=== PATIENT | male | born 1960 | race Caucasian/White ===

== ENCOUNTER 2017-05-01 20:38 | Observation (INO) | payer BC ==
[~2017-05-01] VITALS: Ht 170.2 cm; Wt 88.6 kg
[2017-05-01 20:45] VITALS: BP 124/72; PULSE 80; RESP 18; TEMP 98.6; O2SAT 89
[2017-05-01 20:46] VITALS: O2SAT 95
--- NOTE | 2017-05-01 21:18 | PD ---
HPI Chief Complaint: Syncope/Near-Syncope Time Seen by Provider: 21:16 Travel History International Travel<30 days: No Contact w/Intl Traveler<30days: No Traveled to known affect area: No History of Present Illness HPI The patient is a 57 year old male who presents to the [facility] emergency department with a history of syncopal event after being in the hot tub for over 30 minutes prior to arrival. He denies any known injuries related to the syncope. He reports that he was able to get into the elevator and then he woke up with the doors closing on his feet. He was then able to walk 3 doors down to his condo door. He reportedly knocked on the door and his came out. She found him laying on the floor of the [place]. He had his eyes open however he was not responding to her. He reportedly then began to shake all over which lasted a couple of minutes. He did not bite his tongue or lose control of his bowel or bladder. He denies any prior history of seizure activity. His only other history is significant for having a TIA and 11/2016 with symptoms of weakness and falling related to left lower extremity weakness. Since then he was placed on Crestor, Lisinopril, and Plavix. This occurred in winter. He has not established with a new primary care doctor since moving to the area. He reports that he has continued to take his medications on a regular basis. The only other medication that he takes [id number] is ibuprofen 800 mg once a week when he plays golf. Patient reports that he does drink alcohol on a daily basis. He usually drinks 2 vodka drinks daily. He also occasionally reportedly smokes marijuana. After becoming more responsive after the seizure activity he was confused. He had nausea and vomiting 4. He was also noted to be diaphoretic. He denies having any recent fevers or chills, cough, congestion, neck pain, chest pain, shortness of breath, abdominal pain, diarrhea, urinary symptoms, one-sided weakness, slurred speech, facial droop, difficulty with word finding ability, or vision changes. [facility] Past Medical History Narrative Medical The patient's past medical history is significant for hyperlipidemia, hypertension, history of a TIA in 2017 High Cholesterol: Yes Hypertension: Yes Tetanus Vaccination: < 5 Years Influenza Vaccination: No Past Surgical History Narrative Surgical The patient's past surgical history is significant for skin cancer removal, left shoulder surgery. Other Surgery: Yes (RIGHT SHOULDER ) Social History Alcohol Use: Yes (2 vodka drinks per day) Tobacco Use: No Substance Use: Yes (Marijuana occasional) Allergies-Medications (Allergen,Severity, Reaction): Coded Allergies: No Known Allergies (Unverified , 05/01/17) Reported Meds & Prescriptions Reported Meds & Active Scripts Active Reported Lipitor (Atorvastatin Calcium) 10 Mg Tab 10 Mg PO HS Plavix (Clopidogrel Bisulfate) 75 Mg Tab 75 Mg PO DAILY Crestor (Rosuvastatin Calcium) 5 Mg Tab 5 Mg PO DAILY Review of Systems Except as stated in HPI: all other systems reviewed are Neg General / Constitutional: No: Fever Eyes: No: Visual changes HENT: No: Headaches Cardiovascular: Positive: Diaphoresis, Syncope, No: Chest Pain or Discomfort, Dyspnea on exertion Respiratory: No: Shortness of Breath Gastrointestinal: Positive: Nausea, Vomiting, No: Diarrhea, Abdominal Pain Genitourinary: No: Dysuria Musculoskeletal: No: Pain Skin: No Rash Neurologic: Positive: Syncope, Change in Mentation, Seizures, No: Weakness, Focal Abnormalities, Slurred Speech, Sensory Disturbance Psychiatric: No: Depression Endocrine: No: Polydipsia Hematologic/Lymphatic: No: Easy Bruising Physical Exam Narrative General: The patient is a well-developed well-nourished male in no acute distress. Head and Neck exam: Head is normocephalic atraumatic. Eyes: EOMI, pupils are equal round and reactive to light. Nose: Midline septum with pink mucous membranes Mouth: Dentition unremarkable. Moist mucus membranes. Posterior oropharynx is not erythematous. No tonsillar hypertrophy. Uvula midline. Airway patent. Neck: No palpable lymphadenopathy. No nuchal rigidity. No thyromegaly. Cardiovascular: Regular rate and rhythm without murmurs, gallops, or rubs. No pulse deficit to the extremities on simultaneous auscultation and palpation of his radial artery. Lungs: Clear to auscultation bilaterally. No wheezes, rhonchi, or rales. Abdomen: Soft, without tenderness to palpation in all 4 quadrants of the abdomen. No guarding, rebound, or rigidity. Normal bowel sounds are audible. No tenderness on palpation of McBurney's point. Negative Avilez sign. Extremities: No clubbing, cyanosis, or edema. 2+ pulses in all 4 extremities. No calf tenderness on palpation. Back: No costovertebral angle tenderness to palpation. Neurologic Exam: Cranial nerves 2-12 were intact on exam. Strength is 5/5 in all 4 extremities. No sensory deficits noted. Skin Exam: No rash noted. Intact skin that is warm and dry. Data Data Last Documented VS Vital Signs Date Time Temp Pulse Resp B/P (MAP) Pulse Ox O2 Delivery O2 Flow Rate FiO2 05/01/17:22 16 96 Room Air 05/01/17 21:22 2.00 05/01/17 20:45 98.6 80 Orders Orders Electrocardiogram (05/01/17:) B-Type Natriuretic Peptide (05/01/17:17) Ckmb (Isoenzyme) Profile (05/01/17:17) Complete Blood Count With Diff (05/01/17 21:17) Comprehensive Metabolic Panel (05/01/17 21:) D-Dimer (05/01/17:) Magnesium (Mg) (05/01/17:17) Prothrombin Time / Inr (Pt) (05/01/17 21:17) Act Partial Throm Time (Ptt) (05/01/17 21:17) Troponin I (05/01/17 21:17) Lipase (05/01/17 21:17) Ecg Monitoring (05/01/17:17) Bilateral Bp Monitoring (05/01/17 21:17) Iv Access Insert/Monitor (05/01/17 21:17) Oximetry (05/01/17 21:17) Oxygen Administration (05/01/17:17) Sodium Chloride 0.9% Flush (Ns Flush) (05/01/17 21:30) Sodium Chlorid 0.9% 500 Ml Inj (Ns 500 M (05/01/17 21:30) Chest, Pa & Lat (05/01/17 21:17) Ct Brain W/O Iv Contrast(Rout) (05/01/17 21:48) CKMB (05/01/17 21:30) CKMB% (05/01/17 21:30) Complete Blood Count With Diff (05/01/17 22:55) Admit Order (Ed Use Only) (05/02/17 00:31) Labs Laboratory Tests Test 05/01/17 21:30 05/01/17 22:55 Blood Urea Nitrogen 20 MG/DL Creatinine 1.42 MG/DL Random Glucose 112 MG/DL Total Protein 7.6 GM/DL Albumin 3.8 GM/DL Calcium Level 8.8 MG/DL Magnesium Level 2.2 MG/DL Alkaline Phosphatase 68 U/L Aspartate Amino Transf (AST/SGOT) 27 U/L Alanine Aminotransferase (ALT/SGPT) 39 U/L Total Bilirubin 0.6 MG/DL Sodium Level 137 MEQ/L Potassium Level 4.5 MEQ/L Chloride Level 103 MEQ/L Carbon Dioxide Level 26.5 MEQ/L Anion Gap 8 MEQ/L Estimat Glomerular Filtration Rate 51 ML/MIN Total Creatine Kinase 216 U/L Creatine Kinase MB 2.6 NG/ML Troponin I LESS THAN 0.02 NG/ML B-Type Natriuretic Peptide LESS THAN 2 PG/ML Lipase 135 U/L White Blood Count 12.7 TH/MM3 Red Blood Count 4.09 MIL/MM3 Hemoglobin 13.6 GM/DL Hematocrit 37.8 % Mean Corpuscular Volume 92.4 FL Mean Corpuscular Hemoglobin 33.2 PG Mean Corpuscular Hemoglobin Concent 35.9 % Red Cell Distribution Width 13.2 % Platelet Count 199 TH/MM3 Mean Platelet Volume 8.3 FL Neutrophils (%) (Auto) 89.6 % Lymphocytes (%) (Auto) 4.8 % Monocytes (%) (Auto) 3.5 % Eosinophils (%) (Auto) 0.8 % Basophils (%) (Auto) 1.3 % Neutrophils # (Auto) 11.4 TH/MM3 Lymphocytes # (Auto) 0.6 TH/MM3 Monocytes # (Auto) 0.4 TH/MM3 Eosinophils # (Auto) 0.1 TH/MM3 Basophils # (Auto) 0.2 TH/MM3 CBC Comment DIFF FINAL Differential Comment Hematology Comments Prothrombin Time 10.3 SEC Prothromb Time International Ratio 1.0 RATIO Activated Partial Thromboplast Time 19.6 SEC D-Dimer Quantitative (PE/DVT) 0.30 MG/L [facility] Medical Decision Making Medical Screen Exam Complete: Yes Emergency Medical Condition: Yes Medical Record Reviewed: Yes Interpretation(s) Last Impressions Head CT 05/01/17 [id number] Signed Impressions: Service Date/Time: Monday, May 01, 2017 22:31 - CONCLUSION: 1. Negative noncontrast CT brain. Bry Bonilla MD Chest X-Ray 05/01/[id number] Signed Impressions: Service Date/Time: Monday, May 01, 2017 22:17 - CONCLUSION: The lungs are clear. Bry Bonilla MD Differential Diagnosis Vasovagal syncope, versus orthostatic syncope, versus cardiac arrhythmia, versus seizure disorder, versus intracranial abnormality Narrative Course During the course of the patient's emergency department visit, the patient's history, examination, and differential diagnosis were reviewed with the patient. The patient was placed on a case manager specialist with oximetry and frequent blood pressure monitoring. The patient had IV access obtained and blood work sent for analysis. The patient had an EKG done on arrival. The patient's EKG shows a sinus rhythm heart rate of 80, QRS duration is 101 ms, QTC [address] segment elevation is noted. The patient was initially provided normal saline 500 mL IV 1, Zofran 4 mg IV administered by ambulance services. The patient was given an additional normal saline 500 mL bolus on arrival. The patient's laboratory studies were reviewed and remarkable for a white count of 12.7, hemoglobin 13.6, platelets 199 with neutrophils 89.6, lymphocytes 4.8. CMP is remarkable for BUN of 20, creatinine 1.42, glucose 112, cardiac enzymes within normal limits, BNP less than 2, lipase 135, PT PTT unremarkable, d-dimer 0.30 decrease in likelihood of pulmonary embolism in this patient with no other significant risk factors. Radiology studies were reviewed and remarkable for chest x-ray that shows no acute cardiopulmonary disease. CT scan of the brain shows no acute abnormality. The patient's results were discussed with the patient, including the plan of care. I explained that further testing and/ or monitoring is indicated based on the patient's history, examination, and/ or laboratory findings. Therefore, I recommended admission for additional evaluation. The patient expressed understanding and was agreeable with this plan. The patient was admitted to the hospital in stable condition and [facility] Physician Communication Physician Communication The patient's case including history, pertinent physical examination findings, and laboratory studies were discussed with Dr. Curiel. It was agreed that the [facility] would [facility]. Diagnosis Primary Impression: Syncope Qualified Codes: R55 - Syncope and collapse Additional Impression: Witnessed seizure-like activity Admitting Information Admitting Physician Requests: Observation Juliana Hernández MD May 01, 2017 21:18
[2017-05-01 21:22] VITALS: BP_SYST 131; BP_SYST 135; BP_DIAS 75; BP_DIAS 81; RESP 16; O2SAT 96
[2017-05-01] MEDS ORDERED: LIPI10TA PO (21:27)
[2017-05-01] MEDS ORDERED: ROSU5 PO (21:27)
[2017-05-01] MEDS ORDERED: PLAV75TA29 PO (21:27)
[2017-05-01] MEDS ORDERED: SODIUM CHLORIDE 0.9% FLUSH 10 ML FLUSH IVF PRN (21:30)
[2017-05-01] MEDS ORDERED: SODIUM CHLORID 0.9% 500 ML INJ 500 ML IV ONE (21:30)
[2017-05-01 22:30] VITALS: BP 131/81; PULSE 64; RESP 14; O2SAT 98
--- NOTE | 2017-05-01 22:39 | RADRPT ---
EXAM DATE/TIME: 05/01/2017 22:17 [facility] COMPARISON: No previous studies available for comparison. INDICATIONS : Short of breath, syncope. MEDICAL HISTORY : None. SURGICAL HISTORY : None. ENCOUNTER: Initial ACUITY: 1 day PAIN SCORE: 2/10 LOCATION: Bilateral chest FINDINGS: PA and lateral views of the chest demonstrate the lungs to be symmetrically aerated without evidence of mass, infiltrate or effusion. The cardiomediastinal contours are unremarkable. Osseous structure s are intact. CONCLUSION: The lungs are clear. Bry Bonilla MD on May 01, 2017 at 22:37 Board Certified Radiologist. This report was verified electronically.
--- NOTE | 2017-05-01 22:40 | RADRPT ---
EXAM DATE/TIME: 05/01/2017 22:31 [facility] COMPARISON: No previous studies available for comparison. INDICATIONS : Syncope. RADIATION DOSE: 36.78 CTDIvol (mGy) MEDICAL HISTORY : Hypertension. SURGICAL HISTORY : None. ENCOUNTER: Initial ACUITY: 1 day PAIN SCALE: 0/10 LOCATION: cranial TECHNIQUE: Multiple contiguous axial images were obtained of the head. Using automated exposure control and adj ustment of the mA and/or kV according to patient size, radiation dose was kept as low as reasonably a chievable to obtain optimal diagnostic quality images. DICOM format image data is available electro nically for review and comparison. FINDINGS: CEREBRUM: The ventricles are normal for age. No evidence of midline shift, mass lesion, hemorrhage or acute in farction. No extra-axial fluid collections are seen. POSTERIOR FOSSA: The cerebellum and brainstem are intact. The 4th ventricle is midline. The cerebellopontine angle i s unremarkable. EXTRACRANIAL: The visualized portion of the orbits is intact. SKULL: The calvaria is intact. No evidence of skull fracture. CONCLUSION: 1. Negative noncontrast CT brain. Bry Bonilla MD on May 01, 2017 at 22:37 Board Certified Radiologist. This report was verified electronically.
[2017-05-01 22:50] LABS: ALBUMIN 3.8 GM/DL (3.4-5.0); ALKALINE PHOSPHATASE 68 U/L (45-117); ALT (GPT) 39 U/L (12-78); AST (GOT) 27 U/L (15-37); BICARBONATE 26.5 MEQ/L (21.0-32.0); BLOOD UREA NITROGEN 20 MG/DL (7-18); CALCIUM 8.8 MG/DL (8.5-10.1); CHLORIDE 103 MEQ/L (98-107); CREATININE 1.42 MG/DL (0.60-1.30); GLOMERULAR FILTRATION RATE 51 ML/MIN (>89); GLUCOSE,RANDOM 112 MG/DL (74-106); MAGNESIUM 2.2 MG/DL (1.5-2.5); SODIUM (NA) 137 MEQ/L (136-145); TOTAL BILIRUBIN ADULT 0.6 MG/DL (0.2-1.0); TOTAL PROTEIN 7.6 GM/DL (6.4-8.2); TROPONIN I LESS THAN 0.02 NG/ML (0.02-0.05)
[2017-05-01 23:25] LABS: AUTOMATED NEUTROPHIL # 11.4 TH/MM3 (1.8-7.7); BASOPHIL # 0.2 TH/MM3 (0-0.2); BASOPHIL % 1.3 % (0.0-2.0); EOSINOPHIL # 0.1 TH/MM3 (0-0.4); EOSINOPHIL % 0.8 % (0.0-4.0); HEMATOCRIT 37.8 % (39.0-51.0); HEMOGLOBIN 13.6 GM/DL (13.0-17.0); LYMPH % 4.8 % (9.0-44.0); LYMPHOCYTE # 0.6 TH/MM3 (1.0-4.8); MEAN CELL VOLUME 92.4 FL (80.0-100.0); MEAN CORPUSCULAR HEMOGLOBIN 33.2 PG (27.0-34.0); MEAN CORPUSCULAR HGB CONC 35.9 % (32.0-36.0); MEAN PLATELET VOLUME 8.3 FL (7.0-11.0); MONO % 3.5 % (0.0-8.0); MONOCYTE # 0.4 TH/MM3 (0-0.9); NEUT % 89.6 % (16.0-70.0); PLATELET COUNT 199 TH/MM3 (150-450); RED BLOOD COUNT 4.09 MIL/MM3 (4.50-5.90); RED CELL DISTRIBUTION WIDTH 13.2 % (11.6-17.2); WHITE BLOOD COUNT 12.7 TH/MM3 (4.0-11.0)
[2017-05-01 23:29] LABS: D-DIMER 0.3 MG/L FEU (0.00-0.50); PROTHROMBIN TIME - PATIENT 10.3 SEC (9.8-11.6)
[2017-05-02] VITALS (8 sets, daily range): BP systolic 127–158; BP diastolic 64–88; PULSE 62–83; RESP 14–16; TEMP 98.1–98.6; O2SAT 93–97
[2017-05-02] MEDS ORDERED: SENNOSIDES 8.6 MG TAB PO PRN (01:15)
[2017-05-02] MEDS ORDERED: MAGNESIUM HYDROXIDE SUSP 30 ML CUP PO PRN (01:15)
[2017-05-02] MEDS ORDERED: BISACODYL 10 MG SUPP RECTAL PRN (01:15)
[2017-05-02] MEDS ORDERED: LACTULOSE SYRUP 20 GM/30 ML CUP PO PRN (01:15)
[2017-05-02] MEDS ORDERED: NALOXONE HCL 0.4 MG/ML AMP IV PUSH PRN (01:15)
[2017-05-02] MEDS ORDERED: ONDANSETRON HCL 4 MG/2 ML VIAL IVP PRN (01:15)
[2017-05-02] MEDS ORDERED: SODIUM CHLORIDE 0.9% FLUSH 10 ML FLUSH IV FLUSH PRN (01:15)
--- NOTE | 2017-05-02 02:58 | HHI.HP ---
[facility] Primary Care Physician No Primary Care Physician Admission Diagnosis seizure vs syncope Diagnoses: (1) Syncope Diagnosis: Principal (2) Renal insufficiency Diagnosis: Principal (3) Leukocytosis Diagnosis: Principal Travel History International Travel<30 Days: No Contact w/Intl Traveler <30 Da: No Traveled to Known Affected Are: No History of Present Illness This is a 57-year-old male with a PMH of HTN, Hyperlipidemia and h/o TIA was brought to the ER by EMS after apparent syncopal event. Per patient he was in the hot tub and his condo earlier this evening, had gotten up to go back to his apartment when he had sudden syncopal event in the elevator, states he woke up and found himself lying on the floor of the elevator with the doors closing on his feet. Was able to get up and head back to his apartment, however had second syncopal event while walking in the door. Found by who states the patient had episodes of "shaking". No incontinence. No h/o seizure activity. Denies fever, chills, cough or chest pain. On arrival, BP 135/75, HR 80, O2 sat 96% on 2L NC, Afebrile. EBC 12.7. Creatinine 1.42, no previous labs for comparison. Troponin negative. INR 1.0. D-dimer negative. CT Showed no acute findings. CXR negative. Review of Systems Except as stated in HPI: all other systems reviewed are Neg ROS: 14 point review of systems otherwise negative. Past Family Social History Past Medical History PMH: HTN, Hyperlipidemia and h/o TIA Past Surgical History PAST SURGICAL HISTORY: Right Shoulder Surgery Allergies: Coded Allergies: No Known Allergies (Unverified , 05/01/17) Family History PAST FAMILY HISTORY: Reviewed. No h/o DM or CAD Social History PAST SOCIAL HISTORY: 2 vodka drinks per day. Negative for tobacco. Positive for Marijuana. Physical Exam Vital Signs Vital Signs Date Time Temp Pulse Resp B/P (MAP) Pulse Ox O2 Delivery O2 Flow Rate FiO2 05/01/17 21:22 16 96 Room Air 05/01/17 21:22 96 Nasal Cannula 2.00 05/01/17 21:22 131/81 (98) 135/75 (95) 05/01/17 20:46 95 Nasal Cannula 2.00 05/01/17 20:45 98.6 80 18 124/72 (89) 89 Physical Exam PE: GENERAL: Middle-aged white male in no acute distress, ambulating to bathroom without difficulty. at bedside. HEENT: PERRLA, EOMI. No scleral icterus or conjunctival pallor. No lid lag or facial droop. CARDIOVASCULAR: Regular rate and rhythm. No obvious murmurs to auscultation. No chest tenderness to palpation. RESPIRATORY: No obvious rhonchi or wheezing. Clear to auscultation. Breath sounds equal bilaterally. GASTROINTESTINAL: Abdomen soft, non-tender, nondistended. BS normal. MUSCULOSKELETAL: Extremities without clubbing, cyanosis, or edema. No obvious deformities. NEUROLOGICAL: Awake, alert and oriented x4. No focal neurologic deficits. Moving both upper and lower extremities spontaneously. Laboratory Laboratory Tests Test 05/01/17 21:30 05/01/17 22:55 Blood Urea Nitrogen 20 Creatinine 1.42 Random Glucose 112 Total Protein 7.6 Albumin 3.8 Calcium Level 8.8 Magnesium Level 2.2 Alkaline Phosphatase 68 Aspartate Amino Transf (AST/SGOT) 27 Alanine Aminotransferase (ALT/SGPT) 39 Total Bilirubin 0.6 Sodium Level 137 Potassium Level 4.5 Chloride Level 103 Carbon Dioxide Level 26.5 Anion Gap 8 Estimat Glomerular Filtration Rate 51 Total Creatine Kinase 216 Creatine Kinase MB 2.6 Troponin I LESS THAN 0.02 B-Type Natriuretic Peptide LESS THAN 2 Lipase 135 White Blood Count 12.7 Red Blood Count 4.09 Hemoglobin 13.6 Hematocrit 37.8 Mean Corpuscular Volume 92.4 Mean Corpuscular Hemoglobin 33.2 Mean Corpuscular Hemoglobin Concent 35.9 Red Cell Distribution Width 13.2 Platelet Count 199 Mean Platelet Volume 8.3 Neutrophils (%) (Auto) 89.6 Lymphocytes (%) (Auto) 4.8 Monocytes (%) (Auto) 3.5 Eosinophils (%) (Auto) 0.8 Basophils (%) (Auto) 1.3 Neutrophils # (Auto) 11.4 Lymphocytes # (Auto) 0.6 Monocytes # (Auto) 0.4 Eosinophils # (Auto) 0.1 Basophils # (Auto) 0.2 CBC Comment DIFF FINAL Differential Comment Hematology Comments Prothrombin Time 10.3 Prothromb Time International Ratio 1.0 Activated Partial Thromboplast Time 19.6 D-Dimer Quantitative (PE/DVT) 0.30 Result Diagram: 05/01/17225405/01/172129 Caprini VTE Risk Assessment Caprin VTE Risk Assessment: No/Low Risk (score <= 1) Caprini Risk Assessment Model Point Value = 1 Point Value = 2 Point Value = 3 Point Value = 5 Age 41-60 Minor surgery BMI > 25 kg/m2 Swollen legs Varicose veins or History of unexplained or recurrent spontaneous Oral contraceptives or hormone replacement Sepsis (< 1 month) Serious lung disease, including pneumonia (< 1 month) Abnormal pulmonary function Acute myocardial infarction Congestive heart failure (< 1 month) History of inflammatory bowel disease Medical patient at bed rest Age 61-74 Arthroscopic surgery Major open surgery (> 45 min) Laparoscopic surgery (> 45 min) Malignancy Confined to bed (> 72 hours) Immobilizing plaster cast Central venous access Age >= 75 History of VTE Family history of VTE Factor V Leiden Prothrombin [id number] Lupus anticoagulant Anticardiolipin antibodies Elevated serum homocysteine Heparin-induced thrombocytopenia Other congenital or acquired thrombophilia Stroke (< 1 month) Elective arthroplasty Hip, pelvis, or leg fracture Acute spinal cord injury (< 1 month) Prophylaxis Regimen Total Risk Factor Score Risk Level Prophylaxis Regimen 0-1 Low Early ambulation 2 Moderate Order ONE of the following: *Sequential Compression Device (SCD) *Heparin 5000 units SQ BID 3-4 Higher Order ONE of the following medications: *Heparin 5000 units SQ TID *Enoxaparin/Lovenox 40 mg SQ daily (WT < 150 kg, CrCl > 30 mL/min) *Enoxaparin/Lovenox 30 mg SQ daily (WT < 150 kg, CrCl > 10-29 mL/min) *Enoxaparin/Lovenox 30 mg SQ BID (WT < 150 kg, CrCl > 30 mL/min) AND/OR *Sequential Compression Device (SCD) 5 or more Highest Order ONE of the following medications: *Heparin 5000 units SQ TID (Preferred with Epidurals) *Enoxaparin/Lovenox 40 mg SQ daily (WT < 150 kg, CrCl > 30 mL/min) *Enoxaparin/Lovenox 30 mg SQ daily (WT < 150 kg, CrCl > 10-29 mL/min) *Enoxaparin/Lovenox 30 mg SQ BID (WT < 150 kg, CrCl > 30 mL/min) AND *Sequential Compression Device (SCD) Assessment and Plan Problem List: (1) Syncope ICD Code: R55 - Syncope and collapse (2) Leukocytosis ICD Code: D72.829 - Elevated white blood cell count, unspecified (3) Renal insufficiency ICD Code: N28.9 - Disorder of kidney and ureter, unspecified Assessment and Plan A/P: 1. Syncope: x2, w/ questionable seizure-like activity, ?convulsive syncope vs seizure. CT Head w/ no acute findings, images reviewed by me. Trop negative. Admit for Observation, Telemetry, Check serial cardiac enzymes to eval for possible ischemia, Check Echo to eval for valvular abnormalities. D-dimer negative, PE unlikely. Seizure Precautions. Check EEG to eval for possible seizure like activity. Neuro/Cardio consult as needed. 2. Leukocytosis: WBC 12. Afebrile. Likely secondary to syncope/seizure. CXR w/ no acute findings, images reviewed by me. Repeat labs in am. 3. Renal Insufficiency: Creatinine 1.42, no previous labs for comparison. IVF for hydration, repeat labs in am. 4. DVT Prophylaxis: SCD/teds. 5. Social work for DC planning as needed. 6. Case discussed at length with ER physician, lab/records/imaging reviewed by me. Kamilah Curiel MD May 02, 2017 02:58
[2017-05-02] MEDS: SODIUM CHLOR 0.9% 1000 ML INJ 1,000 ML IV SCH ×3 (05:29→21:01)
[2017-05-02 06:24] LABS: AUTOMATED NEUTROPHIL # 13.4 TH/MM3 (1.8-7.7); BASOPHIL % 0.1 % (0.0-2.0); HEMATOCRIT 38.4 % (39.0-51.0); HEMOGLOBIN 13.3 GM/DL (13.0-17.0); LYMPH % 7.2 % (9.0-44.0); LYMPHOCYTE # 1.1 TH/MM3 (1.0-4.8); MEAN CELL VOLUME 92.7 FL (80.0-100.0); MEAN CORPUSCULAR HGB CONC 34.6 % (32.0-36.0); MEAN PLATELET VOLUME 8.4 FL (7.0-11.0); MONO % 5.6 % (0.0-8.0); MONOCYTE # 0.9 TH/MM3 (0-0.9); NEUT % 87.1 % (16.0-70.0); PLATELET COUNT 222 TH/MM3 (150-450); RED BLOOD COUNT 4.14 MIL/MM3 (4.50-5.90); RED CELL DISTRIBUTION WIDTH 13.4 % (11.6-17.2); WHITE BLOOD COUNT 15.4 TH/MM3 (4.0-11.0)
[2017-05-02 06:31] LABS: ALBUMIN 3.9 GM/DL (3.4-5.0); AST (GOT) 17 U/L (15-37); BICARBONATE 25.4 MEQ/L (21.0-32.0); BLOOD UREA NITROGEN 17 MG/DL (7-18); CHLORIDE 105 MEQ/L (98-107); CREATININE 1.24 MG/DL (0.60-1.30); GLOMERULAR FILTRATION RATE 60 ML/MIN (>89); GLUCOSE,RANDOM 129 MG/DL (74-106); SODIUM (NA) 138 MEQ/L (136-145)
[2017-05-02 06:32] LABS: ALT (GPT) 35 U/L (12-78)
[2017-05-02 06:36] LABS: ALKALINE PHOSPHATASE 72 U/L (45-117); TOTAL PROTEIN 7.5 GM/DL (6.4-8.2); TROPONIN I LESS THAN 0.02 NG/ML (0.02-0.05)
[2017-05-02] MEDS: SODIUM CHLORIDE 0.9% FLUSH 10 ML FLUSH IV FLUSH SCH ×2 (09:00→21:00)
[2017-05-02] MEDS ORDERED: LISI40TA PO (09:23)
[2017-05-02] MEDS: DOCUSATE SODIUM 50 MG/SENNA 8.6 MG TAB PO SCH ×2 (09:24→21:23)
[2017-05-02] MEDS: ATORVASTATIN 10 MG TAB PO SCH (09:24)
[2017-05-02] MEDS: CLOPIDOGREL 75 MG TAB PO SCH (09:24)
--- NOTE | 2017-05-02 10:31 | HHI.PR ---
Subjective Remarks Follow up for syncope vs seizure. The patient is seen with his at bedside. The patient reports yesterday he went for a 2 mile walk and did not drink much water. Later in the day he [facility] for about [facility]- 40 minutes. He also had half of an alcoholic beverage. He then went to go back to his condo, remembers getting the elevator, and then remembers waking up on the floor. He states he made his way to the condo door, knocked on the door , when his answered and noticed him to have his eyes open but with a blank stare, then started shaking and fell to the ground. He also had an episode of vomiting. Denies any incontinence or tongue biting. The reports the episode lasted about a minute. Denies any prior episode of syncope or any history of seizure. He was admitted last year to a hospital in winter, diagnosed with TIA, and started on Plavix at that time. The patient also takes lisinopril and statin. He denies any recent changes to medications. The patient currently feels back to normal. Denies any chest pain, palpitations, shortness of breath, lightheadedness, dizziness, abdominal pain, nausea/vomiting, or diarrhea. He denies any other medical complaints at this time. He wants to go home. Of note, the patient has all records from previous admission for TIA, asked community outreach manager to copy and place records in the chart for review. Objective Vitals Vital Signs Date Time Temp Pulse Resp B/P (MAP) Pulse Ox O2 Delivery O2 Flow Rate FiO2 05/02/17 09:23 80 14 129/78 (95) 96 Nasal Cannula 2.00 05/02/17 07:28 81 14 127/64 (85) 97 Nasal Cannula 2.00 05/02/17 06:19 62 14 143/75 (97) 97 Nasal Cannula 2.00 05/02/17 02:30 71 14 136/84 (101) 97 Nasal Cannula 2.00 05/01/17 22:30 64 14 131/81 (98) 98 Nasal Cannula 2.00 05/01/17 21:22 16 96 Room Air 05/01/17 21:22 96 Nasal Cannula 2.00 05/01/17 21:22 131/81 (98) 135/75 (95) 05/01/17 20:46 95 Nasal Cannula 2.00 05/01/17 20:45 98.6 80 18 124/72 (89) 89 I/O 05/01/17 05/01/17 05/01/17 05/02/17 05/02/17 05/02/17 07:00 15:00 23:00 07:00 15:00 23:00 Intake Total 500 ml Balance 500 ml Intake IV Total 500 ml Result Diagram: 05/02/17 0541 05/02/17 0541 Imaging Last Impressions Head CT 05/01/172147 Signed Impressions: Service Date/Time: Monday, May 01, 2017 22:31 - CONCLUSION: 1. Negative noncontrast CT brain. Bry Bonilla MD Chest X-Ray 05/01/172116 Signed Impressions: Service Date/Time: Monday, May 01, 2017 22:17 - CONCLUSION: The lungs are clear. Bry Bonilla MD Objective Remarks GENERAL: Well-nourished, well-developed pleasant middle aged male patient in [facility]. SKIN: Warm and dry. No rash. HEENT: Normocephalic. Atraumatic.Pupils equal and round. Mucous membranes pink and moist. CARDIOVASCULAR: Regular rate and rhythm. S1, S2 noted. No murmur appreciated. RESPIRATORY: No accessory muscle use. Clear to auscultation. Breath sounds equal bilaterally. GASTROINTESTINAL: Abdomen soft, non-tender, nondistended. Normoactive bowel sounds x4. MUSCULOSKELETAL: No obvious deformities. Extremities without clubbing, cyanosis , or edema. NEUROLOGICAL: Awake and alert. No obvious cranial nerve deficits. Motor grossly within normal limits. Normal speech. PSYCHIATRIC: Appropriate mood and affect; insight and judgment normal. Medications and IVs Current Medications Medications (Trade) Dose Ordered Sig/Cori Route Start Time Stop Time Status Last Admin (NS Flush) 2 ml UNSCH PRN IVF 05/01/17 21:30 Sodium Chloride 1,000 ml @ 100 mls/hr Q10H IV 05/02/17 01:01 05/02/17 05:29 (NS Flush) 2 ml UNSCH PRN IV FLUSH 05/02/17 01:15 (NS Flush) 2 ml BID IV FLUSH 05/02/17 09:00 (Zofran Inj) 4 mg Q6H PRN IVP 05/02/17 01:15 (Narcan Inj) 0.4 mg UNSCH PRN IV PUSH 05/02/17 01:15 (Milka-Colace) 1 tab BID PO 05/02/17 09:00 05/02/17 09:24 (Milk Of Magnesia Liq) 30 ml Q12H PRN PO 05/02/17 01:15 (Senokot) 17.2 mg Q12H PRN PO 05/02/17 01:15 (Dulcolax Supp) 10 mg DAILY PRN RECTAL 05/02/17 01:15 (Lactulose Liq) 30 ml DAILY PRN PO 05/02/17 01:15 (Lipitor) 10 mg HS PO 05/02/17 21:00 (Plavix) 75 mg DAILY PO 05/02/17 09:00 05/02/17 09:24 (Lipitor) 10 mg DAILY PO 05/02/17 09:00 05/02/17 09:24 A/P Problem List: (1) Syncope ICD Code: R55 - Syncope and collapse (2) Leukocytosis ICD Code: D72.829 - Elevated white blood cell count, unspecified (3) Renal insufficiency ICD Code: N28.9 - Disorder of kidney and ureter, unspecified Assessment and Plan 57-year-old male with a PMH of HTN, Hyperlipidemia and h/o TIA was brought to the ER by EMS after syncopal event x2. Syncope: x2, w/ questionable seizure-like activity, ?convulsive syncope vs seizure. -CT Head w/ no acute findings, images reviewed by me. -D-dimer negative, PE unlikely. -Troponins negative x2, checking 3rd set, and EKG with no acute ischemic changes -Monitor on telemetry -Neuro checks, Seizure Precautions. -Check Echo to eval for valvular abnormalities. -Check EEG to eval for possible seizure like activity. -Consult neurology Leukocytosis: WBC 12. Afebrile. Likely secondary to syncope/seizure. -CXR w/ no acute findings, images reviewed by me. -Repeat labs today show increased WBC to 15K -Check UA -Repeat labs in am Renal Insufficiency: Creatinine 1.42, no previous labs for comparison. No reported history of CKD. -Give IVF for hydration -Labs show improvement, Cr 1.24 DVT Prophylaxis: SCD/teds. Discharge Planning Hopefully discharge later today or tomorrow. Echo and EEG pending. Await neurology evaluation. Patient wants to go home. Problem Qualifiers (1) Syncope: Qualified Codes: R55 - Syncope and collapse Ann-Marie Iraheta PA-C May 02, 2017 10:31 am
--- NOTE | 2017-05-02 14:11 | MB ---
cc: Helen Barnes MD DATE OF CONSULT: REASON FOR CONSULTATION: Syncope. HISTORY OF PRESENT ILLNESS: This is a 57-year-old man with a history of hypertension, hyperlipidemia, TIA, now on Plavix therapy, comes in after a syncopal spell. The lives in a condo. He lives on the 19th floor. He was in the hot tub. Prior to that, he had a 2-mile walk on the beach, trying to get back into exercising, was not drinking fluids. While in the hot tub, another couple left and he reset the blower on it, he states, and he was there for another 15 minutes or so. Temperature was about 106 degrees at least. Subsequently, he got out of the hot tub, felt a little strange, sat at the edge for a while and then got up and went to the elevator. While in the elevator, he found himself lying on the floor with his leg outside of the door closing, got up and went to the apartment. His dickerson was still in the elevator. Knocked on the door and his apparently found him having another event, possibly shaking or passed out without any incontinence, no tongue biting. He states he has never had anything like this ever happen to him. PAST MEDICAL HISTORY: As stated. PAST SURGICAL HISTORY: Right shoulder. ALLERGIES: NONE REPORTED. FAMILY HISTORY: Diabetes, I believe in his father. SOCIAL HISTORY: No tobacco, occasional marijuana, 2 vodka drinks a day. PHYSICAL EXAMINATION: VITAL SIGNS: Temperature 98.6 on admission, pulse 80, respiratory rate 14, blood pressure 129/78, sating at 96% on 2 L. NECK: Supple. No carotid bruits. HEART: Regular. NEUROLOGIC: He is awake, alert. He is oriented and fluent. Pupils react. Visual moore full. Face symmetrical. Tongue midline. No tongue laceration. Motor cameron, no drift ir leg lag. No tremors. Toes downgoing. Cerebellar normal. Gait is withheld. LABORATORY DATA: Reviewed. His white count is 15.4, neutrophils 87.1. Coag panel, PTT is 19.6. Chemistries: His BUN was 20 and creatinine 1.42. Creatinine now is 1.24. GFR is 60, glucose 129. Cardiac enzymes are negative. Electrolytes are fine. IMAGING: CT head negative for any acute pathology. Chest x-ray, lungs were clear. IMPRESSION: Likely, a syncopal spell. Patient will undergo an electroencephalogram and a 2-D echo. Maintain him on telemetry. If stable, from my perspective, can be discharged home. He is advised not to use the hot tub for a prolonged period of time. He is also advised to stay well hydrated prior to any type of activity such as walking on the beach, running, exercising, etc. Certainly, consideration would be a Holter monitor as an outpatient versus eval for a loop recorder. Continue current recommendations. Likely discharge tomorrow depending on findings. Please call me if any questions or concerns. MD RUBEN Cedeño/ZOE , 01:28 PM , 02:09 PM
--- NOTE | 2017-05-02 17:29 | ECHRPT ---
Indication: CARDIOMYOPATHY CONCLUSIONS The left ventricular systolic function is hyperdynamic with an estimated ejection fraction in the ra nge of 65- 70%. Normal left ventricular size. Wall thickness is normal. No regional wall motion abnormalities are present. Trace mitral valve regurgitation. There is trace tricuspid valve regurgitation. Normal estimated pulmonary pressures. BP: 129 / 78 HR: 80 Rhythm: Sinus MEASUREMENTS (Male / Female) Normal Values Technical Quality:Fair 2D ECHO LV Diastolic Diameter PLAX 5.0 cm 4.2 - 5.9 / 3.9 - 5.3 cm LV Systolic Diameter PLAX 2.8 cm IVS Diastolic Thickness 1.0 cm 0.6 - 1.0 / 0.6 - 0.9 cm LVPW Diastolic Thickness 1.0 cm 0.6 - 1.0 / 0.6 - 0.9 cm LV Relative Wall Thickness 0.4 RV Internal Dim ED PLAX 2.6 cm LVOT Diameter 2.0 cm LA Systolic Diameter LX 3.6 cm 3.0 - 4.0 / 2.7 - 3.8 cm LV Ejection Fraction MOD 4C 68.0 % LV Ejection Fraction 4C AL 73.0 % M-MODE Aortic Root Diameter MM 2.9 cm LA Systolic Diameter MM 3.5 cm LA Ao Ratio MM 1.2 AV Cusp Separation MM 2.3 cm DOPPLER AV Peak Velocity 159.0 cm/s AV Peak Gradient 10.1 mmHg LVOT Peak Velocity 121.0 cm/s LVOT Peak Gradient 5.9 mmHg AV Area Cont Eq pk 2.4 cm MV Area PHT 3.4 cm Mitral E Point Velocity 74.0 cm/s Mitral A Point Velocity 79.0 cm/s Mitral E to A Ratio 0.9 LV E' Lateral Velocity 8.7 cm/s Mitral E to LV E' Lateral Ratio 8.5 LV E' Septal Velocity 7.0 cm/s Mitral E to LV E' Septal Ratio 10.5 TR Peak Velocity 156.0 cm/s TR Peak Gradient 9.7 mmHg Right Atrial Pressure 10.0 mmHg Pulmonary Artery Systolic Pressu 19.7 mmHg Right Ventricular Systolic Press 19.7 mmHg PV Peak Velocity 126.0 cm/s PV Peak Gradient 6.4 mmHg FINDINGS LEFT VENTRICLE The left ventricular systolic function is hyperdynamic with an estimated ejection fraction in the ra nge of 65- 70%. Normal left ventricular size. Wall thickness is normal. No regional wall motion abnormalities are present. RIGHT VENTRICLE Normal right ventricular size and systolic function. LEFT ATRIUM The left atrial size is normal. RIGHT ATRIUM The right atrial size is normal. ATRIAL SEPTUM Normal atrial septal thickness without atrial level shunting by limited color doppler interrogation. AORTA The aortic root and proximal ascending aorta are normal in size on limited imaging. MITRAL VALVE Structurally normal mitral valve. Trace mitral valve regurgitation. AORTIC VALVE Trileaflet aortic valve. No aortic valve stenosis or regurgitation. TRICUSPID VALVE Structurally normal tricuspid valve. There is trace tricuspid valve regurgitation. Normal estimated pulmonary pressures. PULMONARY VALVE No pulmonary valve regurgitation or stenosis. VESSELS The inferior vena cava is normal in size. PERICARDIUM No pericardial effusion. Bharath Venegas MD, FACC (Electronically Signed) Final Date:02 May 2017 17:27
--- NOTE | 2017-05-02 18:15 | EKG ---
Date Performed: 05/01/2017 Time Performed: 21:22:28 PTAGE: 57 years EKG: Sinus rhythm NORMAL ECG NO PREVIOUS TRACING DOCTOR: Jodee Puentes Interpretating Date/Time 05/02/2017 18:12:12
[2017-05-02] MEDS ORDERED: ATORVASTATIN 10 MG TAB PO SCH (21:00)
[2017-05-03] VITALS: PULSE 82
[2017-05-03 03:23] VITALS: BP 138/81; PULSE 74; RESP 20; TEMP 98.4; O2SAT 95
[2017-05-03 04:00] VITALS: PULSE 66
[2017-05-03] MEDS: SODIUM CHLOR 0.9% 1000 ML INJ 1,000 ML IV SCH (04:33)
[2017-05-03 08:00] VITALS: BP 130/72; PULSE 72; RESP 16; TEMP 98.4; O2SAT 95
[2017-05-03] MEDS: SODIUM CHLORIDE 0.9% FLUSH 10 ML FLUSH IV FLUSH SCH (09:02)
[2017-05-03] MEDS: CLOPIDOGREL 75 MG TAB PO SCH (09:03)
[2017-05-03] MEDS: ATORVASTATIN 10 MG TAB PO SCH (09:04)
[2017-05-03] MEDS: DOCUSATE SODIUM 50 MG/SENNA 8.6 MG TAB PO SCH (09:06)
--- NOTE | 2017-05-03 09:17 | HHI.DS ---
Discharge Summary Admission Date May 02, 2017 at 00:32 Discharge Date: May 03, 2017 Admitting Diagnosis seizure vs syncope (1) Syncope ICD Code: R55 - Syncope and collapse (2) Leukocytosis ICD Code: D72.829 - Elevated white blood cell count, unspecified (3) Renal insufficiency ICD Code: N28.9 - Disorder of kidney and ureter, unspecified Procedures No procedures Brief History - From Admission This is a 57-year-old male with a PMH of HTN, Hyperlipidemia and h/o TIA was brought to the ER by EMS after apparent syncopal event. Per patient he was in the hot tub and his condo earlier this evening, had gotten up to go back to his apartment when he had sudden syncopal event in the elevator, states he woke up and found himself lying on the floor of the elevator with the doors closing on his feet. Was able to get up and head back to his apartment, however had second syncopal event while walking in the door. Found by who states the patient had episodes of "shaking". No incontinence. No h/o seizure activity. Denies fever, chills, cough or chest pain. On arrival, BP 135/75, HR 80, O2 sat 96% on 2L NC, Afebrile. EBC 12.7. Creatinine 1.42, no previous labs for comparison. Troponin negative. INR 1.0. D-dimer negative. CT Showed no acute findings. CXR negative. CBC/BMP: 05/02/17 0541 05/02/17 0541 Significant Findings Laboratory Tests Test 05/01/17 21:30 05/01/17 22:55 05/02/17 05:41 05/02/17 12:24 Blood Urea Nitrogen 20 MG/DL (7-18) Creatinine 1.42 MG/DL (0.60-1.30) Random Glucose 112 MG/DL (74-106) 129 MG/DL (74-106) Estimat Glomerular Filtration Rate 51 ML/MIN (>89) 60 ML/MIN (>89) Troponin I LESS THAN 0.02 NG/ML LESS THAN 0.02 NG/ML LESS THAN 0.02 NG/ML White Blood Count 12.7 TH/MM3 (4.0-11.0) 15.4 TH/MM3 (4.0-11.0) Red Blood Count 4.09 MIL/MM3 (4.50-5.90) 4.14 MIL/MM3 (4.50-5.90) Hematocrit 37.8 % (39.0-51.0) 38.4 % (39.0-51.0) Neutrophils (%) (Auto) 89.6 % (16.0-70.0) 87.1 % (16.0-70.0) Lymphocytes (%) (Auto) 4.8 % (9.0-44.0) 7.2 % (9.0-44.0) Neutrophils # (Auto) 11.4 TH/MM3 (1.8-7.7) 13.4 TH/MM3 (1.8-7.7) Lymphocytes # (Auto) 0.6 TH/MM3 (1.0-4.8) Activated Partial Thromboplast Time 19.6 SEC (24.3-30.1) Imaging Last Impressions Head CT 05/01/172147 Signed Impressions: Service Date/Time: Monday, May 01, 2017 22:31 - CONCLUSION: 1. Negative noncontrast CT brain. Bry Bonilla MD Chest X-Ray 05/01/172116 Signed Impressions: Service Date/Time: Monday, May 01, 2017 22:17 - CONCLUSION: The lungs are clear. Bry Bonilla MD PE at Discharge GENERAL: Well-nourished, well-developed pleasant middle aged male patient in [facility]. SKIN: Warm and dry. No rash. HEENT: Normocephalic. Atraumatic.Pupils equal and round. Mucous membranes pink and moist. CARDIOVASCULAR: Regular rate and rhythm. S1, S2 noted. No murmur appreciated. RESPIRATORY: No accessory muscle use. Clear to auscultation. Breath sounds equal bilaterally. GASTROINTESTINAL: Abdomen soft, non-tender, nondistended. Normoactive bowel sounds x4. MUSCULOSKELETAL: No obvious deformities. Extremities without clubbing, cyanosis , or edema. NEUROLOGICAL: Awake and alert. No obvious cranial nerve deficits. Motor grossly within normal limits. Normal speech. PSYCHIATRIC: Appropriate mood and affect; insight and judgment normal. Pt update on day of discharge The patient the margin of the bed. Says he feels much better since he is back at his baseline family also at bedside. Denies lightheadedness, palpitations, nausea, vomiting, diarrhea or constipation. Eating well. No change in vision, motor deficit or sensory deficits. Hospital Course 57-year-old male with a PMH of HTN, Hyperlipidemia and h/o TIA was brought to the ER by EMS after syncopal event x2. Syncope: x2, w/ questionable seizure-like activity, ?convulsive syncope vs seizure. -CT Head w/ no acute findings, images reviewed by me. -D-dimer negative, PE unlikely. -Troponins negative x3, and EKG with no acute ischemic changes -Monitored on telemetry -Neuro checks, Seizure Precautions. - Echo is normal, normal ejection fraction -EEG no seizure -Consult neurology, cleared patient for discharge Leukocytosis: WBC 12. Afebrile. Likely secondary to syncope/seizure. Improved. -CXR w/ no acute findings, images reviewed by me. -Repeat labs today show increased WBC to 15K -Check UA -Repeat labs in am Renal Insufficiency: Creatinine 1.42, no previous labs for comparison. No reported history of CKD. Creatinine improved. -Give IVF for hydration DVT Prophylaxis: SCD/teds. Discharge Planning EEG normal . Cleared by neurology for discharge. Patient is discharged home to follow-up with PCP and consultants as outpatient Pt Condition on Discharge: Stable Discharge Disposition: Discharge Home Discharge Time: > 30 minutes Discharge Instructions DIET: Follow Instructions for: Heart Healthy Diet Activities you can perform: Regular-No Restrictions Activities to Avoid: Driving Follow up Referrals: PCP Follow-up - 1 Week New Medications: Lisinopril (Lisinopril) 10 Mg Tab 10 MG PO DAILY for 30 Days, #30 TAB 0 Refills Atorvastatin (Lipitor) 10 Mg Tab 20 MG PO HS for Cholesterol Management, #30 TAB Continued Medications: Clopidogrel (Plavix) 75 Mg Tab 75 MG PO DAILY for Blood Clot Prevention, #30 TAB 0 Refills Discontinued Medications: Atorvastatin (Lipitor) 10 Mg Tab 10 MG PO HS for Cholesterol Management, #30 TAB 0 Refills Lisinopril (Lisinopril) 40 Mg Tab 40 MG PO DAILY for Blood Pressure Management, #30 TAB 0 Refills Rosuvastatin (Crestor) 5 Mg Tab 5 MG PO DAILY for Cholesterol Management, #30 TAB 0 Refills Alba Underwood MD May 03, 2017 09:17
[2017-05-03] MEDS ORDERED: LIPI10TA PO (09:18)
[2017-05-03] MEDS ORDERED: LISI10TA3 PO (10:19)
[2017-05-03 12:00] VITALS: BP 132/78; PULSE 72; RESP 16; TEMP 98.3; O2SAT 95
--- NOTE | 2017-05-03 12:02 | MG ---
cc: Panfilo Sibley MD EEG RECORD NUMBER: [id number] DATE OF : 1960 A 55-year-old with history of syncopal episodes. FINDINGS: Well-formed alpha activity, 8-10 Hz, 20-40 mcv, low amplitude beta in the frontal channels, good anterior to posterior gradient. Background slowing with transition into drowsy state, Stage I sleep. Appearance of vertex waves followed by a K-complex and spindles suggestive of Stage II sleep. Reduced driving with photic stimulation. Single lead EEG showing sinus rhythm. INTERPRETATION: Normal awake-sleep EEG. Clinical correlation. Panfilo Sibley MD MG/SB , 11:54 AM , 12:02 PM
--- NOTE | 2017-05-03 20:26 | EKG ---
Date Performed: 05/02/2017 Time Performed: 12:19:44 PTAGE: 57 years EKG: Sinus rhythm MODERATE INTRAVENTRICULAR CONDUCTION DELAY BORDERLINE ECG Since the PREVIOUS TRACING , no significant change noted DOCTOR: Jenny Christopher Interpretating Date/Time 05/03/2017 20:25:20
== END 2017-05-03 13:06 | disposition home or self-care (01) ==
LOC: NEPE 20:38 → NEDA 05-02 00:32 → NEDH 05-02 06:06 → NEPFCDU 05-02 12:47
PROVIDERS: ADMIT Hospitalist; ATTEND Hospitalist
DX: R55 Syncope and collapse (principal); D72.829 Elevated white blood cell count, unspecified; N28.9 Disorder of kidney and ureter, unspecified; R11.2 Nausea with vomiting, unspecified; R61 Generalized hyperhidrosis; I10 Essential (primary) hypertension; E78.00 Pure hypercholesterolemia, unspecified; F12.90 Cannabis use, unspecified, uncomplicated; Z86.73 Personal history of transient ischemic attack (TIA), and cerebral infarction without residual deficits; Z79.899 Other long term (current) drug therapy
CPT/HCPCS: 70450; 71046; 80053; 82550; 82552; 83690; 83735; 83880; 84484; 85025; 85379; 85610; 85730; 93005; 93306; 95819; 96360; 96361; 97161; 99285; G0378; G8987; G8988; G8989; J7030; J7040